=== PATIENT | female | born 1975 | race Caucasian/White ===

== ENCOUNTER 2016-07-18 17:09 | Emergency (ER) | payer BC ==
--- NOTE | 2016-07-18 18:58 | DIAGNOSTIC IMAGING REPORT ---
PROCEDURE: US ABDOMEN ULTRASOUND-LIMITED INDICATION: Epigastric and abdominal pain. TECHNIQUE: Waller scale and color Doppler sonographic images of the abdomen were obtained. COMPARISON: None. FINDINGS: Gallbladder is normal. No evidence of gallstones. Common duct is normal (5 mm). Portions of the liver, pancreas, and right kidney are seen, and are normal. IMPRESSION: 1. Negative ultrasound of the gallbladder and right upper quadrant.
--- NOTE | 2016-07-18 20:48 | ED CLINICAL REPORT ---
Clinical Report - Physicians/Mid Levels [facility] [address] [place] [address] 07/18/2016 17:10 Patient: SHILO PEDRO Time Seen: 1719. Arrived- By private vehicle. Historian- patient. HISTORY OF PRESENT ILLNESS Chief Complaint: ABDOMINAL PAIN. At its maximum, severity described as severe. When seen in the E.D., severity described as severe. Modifying factors- worsened by food. Relieved by rest. (states about 30 minutes after eating it gets really bad). It is described as sharp. No radiation. It is described as located in the epigastric area. This started past few weeks and is still present. It was abrupt in onset and has been intermittent but is not gone now. The patient has had nausea. No loss of appetite, vomiting or diarrhea. No additional abdominal pain. No recent travel. Similar symptoms previously: None. Recent medical care: The patient was seen recently in a clinic (state she had a normal US done from the clinic. Was told it was normal.). REVIEW OF SYSTEMS No skin rash. All systems otherwise negative, except as recorded above. PAST HISTORY See nurses notes. Medications: Apri Oral. Omeprazole Oral. Allergies: Meperidine. Penicillins. SOCIAL HISTORY Never smoker. Occasional alcohol use. No drug use. No recent travel. Is a local resident. ADDITIONAL NOTES The nursing notes have been reviewed. PHYSICAL EXAM Vital Signs: 07/18/2016 17:29 BP: 127/72. HR: 72. RR: 16. O2 saturation: 99%. Temp: 98.8 F. Blood pressure normal. Oxygen saturation normal. Appearance: Alert. Oriented X3. No acute distress. Eyes: Pupils equal, round and reactive to light. Eyes normal inspection. ENT: Ears normal. Nose normal. Pharynx normal. Neck: Normal inspection. Neck supple. CVS: Normal heart rate and rhythm. Heart sounds normal. Pulses normal. Respiratory: No respiratory distress. Breath sounds normal. Chest nontender. Abdomen: Soft and nontender. Bowel sounds normal. No organomegaly. No mass. Femoral pulses equal. Skin: Skin warm and dry. Normal skin color. No rash. Normal skin turgor. Extremities: Extremities exhibit normal ROM. No lower extremity edema. LABS, X-RAYS, AND EKG KUB: (PROCEDURE: US ABDOMEN ULTRASOUND-LIMITED INDICATION: Epigastric and abdominal pain. TECHNIQUE: Waller scale and color Doppler sonographic images of the abdomen were obtained. COMPARISON: None. FINDINGS: Gallbladder is normal. No evidence of gallstones. Common duct is normal (5 mm). Portions of the liver, pancreas, and right kidney are seen, and are normal. IMPRESSION: 1. Negative ultrasound of the gallbladder and right upper quadrant.). Laboratory Tests: UA-Culture if indicated: (BIANCA: 07/18/2016 18:26) ( [facility] [place] Final results Test Result Flag Units (Reference) URINE COLOR YELLOW URINE APPEARANCE CLEAR URINE GLUCOSE NEGATIVE (NEGATIVE) URINE BILIRUBIN NEGATIVE (NEGATIVE) URINE KETONE TRACE (NEGATIVE) URINE SPECIFIC GRAVITY 1.010 (1.010-1.030) URINE PH 7.0 (5.0-8.0) URINE PROTEIN NEGATIVE (NEGATIVE) URINE UROBILINOGEN 0.2 EU/dL (0.2-1.0) URINE NITRITE NEGATIVE (NEGATIVE) URINE BLOOD TRACE-INTACT (NEGATIVE) URINE LEUK ESTERASE NEGATIVE (NEGATIVE) URINE RBC NONE SEEN rbc/hpf (0-1) URINE WBC 0-1 wbc/hpf (0-1) URINE EPITHELIAL CELLS 0-1 EPI/hpf (0-5) URINE BACTERIA NONE SEEN (NONE SEEN) URINE COMMENT CULT NOT INDICATED URINE CULTURES ARE SET-UP BASED ON THE FOLLOWING CRITERIA:POSITIVE NITRITEPOSITIVE LEUKOCYTE ESTERASEGREATER THAN 10 WHITE BLOOD CELLSMODERATE (2+) OR GREATER BACTERIA CBC w Diff: (BIANCA: 07/18/2016 18:40) ( [facility] [place] 18:57) Final results Test Result Flag Units (Reference) WHITE BLOOD COUNT 10.7 K/uL (4.5-11.5) RED BLOOD COUNT 4.53 M/uL (4.00-5.20) HEMOGLOBIN 13.9 gm/dL (12.0-16.0) HEMATOCRIT 40.6 % (36.0-46.0) MEAN CELL VOLUME 90 fL (80-100) MEAN CORPUSCULAR HGB 31 pg (26-34) MEAN CORPUSCULAR HGB CONC 34 g/dL (31-37) RED CELL DISTRIBUTION WIDTH 12.3 % (11.6-14.8) PLATELET COUNT 245 K/uL (150-400) NEUTROPHIL % 51.7 % (50-75) LYMPH % 22.8 L % (25-40) MONO % 6.7 % (3-14) EOSINOPHIL % 18.0 H % (0-4) BASOPHIL % 0.8 % (0-2) PT with INR: (BIANCA: 07/18/2016 18:40) ( [facility] 07/18/2016 19:09) Final results Test Result Flag Units (Reference) INR 0.9 (0.8-1.2) Low Intensity Therapy: INR 1.5-2.0 PT range 18.5-23.1Mod.Intensity Therapy: INR 2.0-3.0 PT range 23.1-31.5High Intensity Therapy: INR 2.5-3.5 PT range 27.4-35.5High Intensity Therapy 2: INR 3.0-4.0 PT range 31.5-39.3 CMP: (BIANCA: 07/18/2016 18:40) ( [facility] 07/18/2016 19:21) Final results Test Result Flag Units (Reference) GLUCOSE 82 mg/dL (70-110) BUN 16 mg/dL (7-18) CREATININE 0.7 mg/dL (0.6-1.3) Estimated GFR >60 mL/min Estimated GFR- >60 mL/min Note: Persistent reduction over 3 months in eGFR<60 mL/min/1.73 m2 defines CKD. Patients with eGFR values>=60 mL/min/1.73 m2 may also have CKD if evidence ofpersistent proteinuria. Additional information may be foundat [email or web address].org. SODIUM 141 mmol/L (136-145) POTASSIUM 3.7 mmol/L (3.5-5.1) CHLORIDE 102 mmol/L (98-107) CARBON DIOXIDE 28 mmol/L (21-32) CALCIUM 9.1 mg/dL (8.5-10.1) TOTAL PROTEIN 7.5 g/dL (6.4-8.2) ALBUMIN 3.9 g/dL (3.3-5.0) BILIRUBIN, TOTAL 0.5 mg/dL (0.0-1.0) ALKALINE PHOSPHATASE 53 U/L (46-116) AST (SGOT) 19 U/L (15-37) ALT (SGPT) 22 U/L (12-78) LIPASE 108 U/L (73-393) BETA HCG, QUANTITATIVE 1 mIU/mL REFERENCE RANGE:Adult Males: <2 mIU/mLNon- Females: <6 mIU/mL Females:Approximate Approximate hCGGestational Age Range (mIU/mL) 0-1 week 0-501-2 weeks 40-3002-3 weeks 100-18588-6 weeks 500-56203-3 months 5,000-200,0002-3 months 10,000-100,0002nd trimester 3,000-50,0003rd trimester 1,000-50,000 . PROGRESS AND PROCEDURES Course of Care: the patient is a pleasant 41-year-old female presenting for evaluation of epigastric abdominal pain that is associated with eating. Patient's symptoms appear to becolicky in nature andappear to be related to the patient's gallbladder. The confounding factor is the patient was evaluated by her primary care doctor with an ultrasound and did not find any signs of cholelithiasis or cholecystitis. I discussion with patient in regards to other causes of patient's epigastric abdominal pain as well as gastritis versus peptic ulcer disease. Had also discussion with patient in regards to further workup here in the emergency department including ultrasound again or CT scan. Head discussion patient in regards to radiation risk with the CT scan andafter some deliberationpatient decided to have an ultrasound performed and await symptom improvement withmedications here in the emergency department. Patient is nontoxic and in no acute distress. Patient is agreeable to the treatment plan. The patient's workup was markable for the findings above. No signs of urinary tract infection. Patient's laboratory studies otherwise unremarkable. Patientreports significant improvement with the GI cocktail that was provided. Because of this, feel the symptoms are more related to gastritis versus peptic ulcer disease. Ultrasound does not show any signs of acute cholecystitis. Because the patient's improved symptoms patient will be given a trial of antacid medication and follow up with her primary care Dr. Do not feel patient needs to be admitted to the hospital or require further emergency department workup/evaluation. Patient appears nontoxic. Repeat examinatiig Discussed the patient workup in the emergency department including home care, follow-up, and return precautions. All questions answered. The patient expressed understanding of these instructions and was agreeable to them. Disposition: Discharged. Condition: good. CLINICAL IMPRESSION Acute epigastric abdominal pain of unknown cause. 07/18/2016 17:29 BP: 127/72. HR: 72. RR: 16. O2 saturation: 99%. Temp: 98.8 F. Moderate nausea. No vomiting. Blood pressure normal. Oxygen saturation normal. Acute gastritis INSTRUCTIONS Warnings: GENERAL WARNINGS: Return or contact your physician immediately if your condition worsens or changes unexpectedly, if not improving as expected, or if other problems arise. SPECIFICALLY, return if you develop pain, fever, vomiting, the inability to keep fluids down, blood in vomitus, blood in diarrhea, fainting or lightheadedness. Your Current Medications: CONTINUE TAKING THE FOLLOWING MEDICATIONS: Apri Oral. Omeprazole Oral. Prescription Medications: Zofran (orally disintegrating tablets) 4 mg: take 1 orally every 8 hours as needed for nausea and vomiting. Dispense ten (10). No refill. Substitution is permissible. Sucralfate 1 gm: take 1 orally at bedtime as needed for indigestion, upset stomach or heartburn. Dispense twenty (20). No refills. (substitution allowed) Follow-up: Return to the emergency department as needed. Follow up with a academic affairs specialist- as recommended by your primary care physician. Reason for referral: recheck today's concerns. Follow up with your doctor in three days. Reason for referral: recheck today's concerns. Summary of care provided to patient via paper. Screening today revealed the patient's blood pressure to be in the normal range. The patient should follow up with a primary care provider for blood pressure management. Understanding of the discharge instructions verbalized by patient. (Electronically signed by Terry Davies Dr. 07/22/2016 12:57)
--- NOTE | 2016-07-18 20:48 | ED NURSING NOTES ---
Clinical Report - Nurses [facility] [address] [place] [address] 07/18/2016 17:10 Patient: SHILO PEDRO TRIAGE Triage time 17:21. Acuity: LEVEL 3. Chief Complaint: ABDOMINAL PAIN and NAUSEA. Alert. --17:27 Yvonne Pedroza R.N. 17:29 07/18/16. BP: 127/72. HR: 72. RR: 16. O2 saturation: 99%. Temp: 98.8 F. Pain level now 10/22. --17:30 Yvonne Pedroza R.N. Weight: 51.7 kg stated. Height/Length: 63 inches Per Patient. BMI: 20.2. --17:21 Yvonne Pedroza R.N. Medications Omeprazole Oral. --17:23 Yvonne Pedroza R.N. Apri Oral. --17:23 Yvonne Pedroza R.N. Allergies Meperidine. Penicillins. --17:23 Yvonne Pedroza R.N. History Arrived by private vehicle. Historian: patient. Accompanied by friend. Primary physician (Brad). This is a new problem. (about 2 weeks). ( was seen at the [facility] yesterday and had a gallbladder u/s but needed to schedule a GI consult but not able to get in for 3 weeks.). She has had nausea. No vomiting or diarrhea. 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 PAST MEDICAL HX: Immunizations: status is unknown. Last normal menstrual period- July 11. ( bronchitis). SOCIAL HX: Never smoker. Occasional alcohol use. No recent travel. She has had contact with a sick individual. --17:27 Yvonne Pedroza R.N. ( Pain is burning epigastric pain). --17:30 Yvonne Pedroza R.N. PROBLEMS: no known problems. ADDITIONAL SURGERIES: Breast Augmentation. --17:24 Yvonne Pedroza R.N. PHYSICAL ASSESSMENT Ambulatory to room. Patient gowned. GENERAL / NEURO / PSYCH: Alert. Oriented X 4. Appears in no acute distress. RESPIRATORY: Respirations not labored. CVS: Capillary refill less than 2 seconds. --17:28 Yvonne Pedroza R.N. ( Patient laying in bed states that her pain is decreased after receiving the pain medication.). GENERAL / NEURO / PSYCH: Alert. Oriented X 4. Appears in no acute distress. HEENT: Mucous membranes are pink. RESPIRATORY: Respirations not labored. Breath sounds within normal limits. CVS: Capillary refill less than 2 seconds. GI / : Bowel sounds within normal limits. SKIN: Skin is warm and dry. --19:16 Austen Naranjo R.N. 19:15 07/18/16. BP: 99/67. HR: 67. RR: 17 (regular and unlabored). O2 saturation: 100% on room air. Pain level now: 06/22. --19:16 Austen Naranjo R.N. NURSING PROGRESS NOTES Patient gowned. Patient identifiers checked. Call light placed in reach. Patient ready for evaluation- ED physician notified. --17:28 Yvonne Pedroza R.N. 18:45 07/18/2016 Site #1 started via IV in the right antecubital space with an 18g angiocath using 1% intra-dermal lidocaine; one attempt. Blood drawn: rainbow set. Labeled in the presence of the patient and sent to the lab. Saline lock flushed with 10 mL saline. --18:45 Yvonne Pedroza R.N. 18:49 07/18/2016 Fentanyl IVP 50 mcg given over 2 minute(s) via site #1. Allergies verified, confirmed 5 rights and sedative warning given to the patient. IV patency established. IV site checked: no pain, redness, or swelling. IV flushed thoroughly pre- and post-medication administration. IVP given by RN. --18:54 Yvonne Pedroza R.N. 18:49 07/18/2016 Zofran (Ondansetron HCl) IVP 4 mg given over 2 minute(s) via site #1. Allergies verified and confirmed 5 rights. IV patency established. IV site checked: no pain, redness, or swelling. IV flushed thoroughly pre- and post-medication administration. IVP given by RN. --18:54 Yvonne Pedroza R.N. 18:53 07/18/2016 Started bag #1 1000 mL IV Fluids IV NS (Saline); bolus of 1000 mL wide open via site #1. Allergies verified and confirmed 5 rights. IV patency established. IV site checked: no pain, redness, or swelling. IV flushed thoroughly pre- and post-medication administration. --18:54 Yvonne Pedroza R.N. ( Report received from Yvonne Bearden RN.). --19:11 Austen Naranjo R.N. 19:53 07/18/2016 IV Fluids IV NS Discontinued: bag #1 completed upon discharge. Total amount infused: 1000 mL. IV patency established. IV site checked: no pain, redness, or swelling. IV flushed thoroughly. --21:10 Austen Naranjo R.N. 19:57 07/18/2016 GI COCKTAIL WHITE (Simethicone) PO Oral Suspension 30 mL given. Allergies verified and confirmed 5 rights. --19:57 Austen Naranjo R.N. 21:07/18/2016 Site #1 removed upon discharge. Manual pressure and bandaid applied. --21:06 Austen Naranjo R.N. DISPOSITION / DISCHARGE Departure time: 21:07. Condition at departure: stable. No learning barriers present. Discharge instructions provided and reviewed with support clerk and the patient. Reviewed warnings. Reviewed medication(s) side effects, precautions, dosing and course information. Prescription(s) given to the patient. Treatments reviewed. Reviewed referrals. Patient and support clerk verbalized understanding. Written instructions provided in Spanish. The patient was discharged home and accompanied by support clerk. She left the Emergency Department ambulatory and via private vehicle. Duco Polisher driving. ( Patient states understanding that she is not supposed to drive tonight after receiving narcotic pain medications tonight.). --21:09 Austen Naranjo R.N. 21:06 07/18/16. BP: 104/69. HR: 71. RR: 18 (regular and unlabored). O2 saturation: 95% on room air. --21:09 Austen Naranjo R.N. ( pt stated that her pain decreased after the GI cocktail.). --21:11 Austen Naranjo R.N. Locked/Released at 07/18/2016 21:11 by Austen Naranjo R.N.
--- NOTE | 2016-07-18 20:48 | ED NURSING NOTES ---
Clinical Report - Nurses [facility] [address] [place] [address] 07/18/2016 17:10 Patient: SHILO PEDRO TRIAGE Triage time 17:21. Acuity: LEVEL 3. Chief Complaint: ABDOMINAL PAIN and NAUSEA. Alert. --17:27 Yvonne Pedroza R.N. 17:29 07/18/16. BP: 127/72. HR: 72. RR: 16. O2 saturation: 99%. Temp: 98.8 F. Pain level now 10/22. --17:30 Yvonne Pedroza R.N. Weight: 51.7 kg stated. Height/Length: 63 inches Per Patient. BMI: 20.2. --17:21 Yvonne Pedroza R.N. Medications Omeprazole Oral. --17:23 Yvonne Pedroza R.N. Apri Oral. --17:23 Yvonne Pedroza R.N. Allergies Meperidine. Penicillins. --17:23 Yvonne Pedroza R.N. History Arrived by private vehicle. Historian: patient. Accompanied by friend. Primary physician (Brad). This is a new problem. (about 2 weeks). ( was seen at the [facility] yesterday and had a gallbladder u/s but needed to schedule a GI consult but not able to get in for 3 weeks.). She has had nausea. No vomiting or diarrhea. 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 PAST MEDICAL HX: Immunizations: status is unknown. Last normal menstrual period- July 11. ( bronchitis). SOCIAL HX: Never smoker. Occasional alcohol use. No recent travel. She has had contact with a sick individual. --17:27 Yvonne Pedroza R.N. ( Pain is burning epigastric pain). --17:30 Yvonne Pedroza R.N. PROBLEMS: no known problems. ADDITIONAL SURGERIES: Breast Augmentation. --17:24 Yvonne Pedroza R.N. PHYSICAL ASSESSMENT Ambulatory to room. Patient gowned. GENERAL / NEURO / PSYCH: Alert. Oriented X 4. Appears in no acute distress. RESPIRATORY: Respirations not labored. CVS: Capillary refill less than 2 seconds. --17:28 Yvonne Pedroza R.N. ( Patient laying in bed states that her pain is decreased after receiving the pain medication.). GENERAL / NEURO / PSYCH: Alert. Oriented X 4. Appears in no acute distress. HEENT: Mucous membranes are pink. RESPIRATORY: Respirations not labored. Breath sounds within normal limits. CVS: Capillary refill less than 2 seconds. GI / : Bowel sounds within normal limits. SKIN: Skin is warm and dry. --19:16 Austen Naranjo R.N. 19:15 07/18/16. BP: 99/67. HR: 67. RR: 17 (regular and unlabored). O2 saturation: 100% on room air. Pain level now: 06/22. --19:16 Austen Naranjo R.N. NURSING PROGRESS NOTES Patient gowned. Patient identifiers checked. Call light placed in reach. Patient ready for evaluation- ED physician notified. --17:28 Yvonne Pedroza R.N. 18:45 07/18/2016 Site #1 started via IV in the right antecubital space with an 18g angiocath using 1% intra-dermal lidocaine; one attempt. Blood drawn: rainbow set. Labeled in the presence of the patient and sent to the lab. Saline lock flushed with 10 mL saline. --18:45 Yvonne Pedroza R.N. 18:49 07/18/2016 Fentanyl IVP 50 mcg given over 2 minute(s) via site #1. Allergies verified, confirmed 5 rights and sedative warning given to the patient. IV patency established. IV site checked: no pain, redness, or swelling. IV flushed thoroughly pre- and post-medication administration. IVP given by RN. --18:54 Yvonne Pedroza R.N. 18:49 07/18/2016 Zofran (Ondansetron HCl) IVP 4 mg given over 2 minute(s) via site #1. Allergies verified and confirmed 5 rights. IV patency established. IV site checked: no pain, redness, or swelling. IV flushed thoroughly pre- and post-medication administration. IVP given by RN. --18:54 Yvonne Pedroza R.N. 18:53 07/18/2016 Started bag #1 1000 mL IV Fluids IV NS (Saline); bolus of 1000 mL wide open via site #1. Allergies verified and confirmed 5 rights. IV patency established. IV site checked: no pain, redness, or swelling. IV flushed thoroughly pre- and post-medication administration. --18:54 Yvonne Pedroza R.N. ( Report received from Yvonne Bearden RN.). --19:11 Austen Naranjo R.N. 19:53 07/18/2016 IV Fluids IV NS Discontinued: bag #1 completed upon discharge. Total amount infused: 1000 mL. IV patency established. IV site checked: no pain, redness, or swelling. IV flushed thoroughly. --21:10 Austen Naranjo R.N. 19:57 07/18/2016 GI COCKTAIL WHITE (Simethicone) PO Oral Suspension 30 mL given. Allergies verified and confirmed 5 rights. --19:57 Austen Naranjo R.N. 21:07/18/2016 Site #1 removed upon discharge. Manual pressure and bandaid applied. --21:06 Austen Naranjo R.N. DISPOSITION / DISCHARGE Departure time: 21:07. Condition at departure: stable. No learning barriers present. Discharge instructions provided and reviewed with tavern car attendant and the patient. Reviewed warnings. Reviewed medication(s) side effects, precautions, dosing and course information. Prescription(s) given to the patient. Treatments reviewed. Reviewed referrals. Patient and tavern car attendant verbalized understanding. Written instructions provided in Yi. The patient was discharged home and accompanied by tavern car attendant. She left the Emergency Department ambulatory and via private vehicle. Nurse [employer] Dependency driving. ( Patient states understanding that she is not supposed to drive tonight after receiving narcotic pain medications tonight.). --21:09 Austen Naranjo R.N. 21:06 07/18/16. BP: 104/69. HR: 71. RR: 18 (regular and unlabored). O2 saturation: 95% on room air. --21:09 Austen Naranjo R.N. ( pt stated that her pain decreased after the GI cocktail.). --21:11 Austen Naranjo R.N. Locked/Released at 07/18/2016 21:11 by Austen Naranjo R.N.
--- NOTE | 2016-07-18 20:48 | ED CLINICAL REPORT ---
Clinical Report - Physicians/Mid Levels [facility] [address] [place] [address] 07/18/2016 17:10 Patient: SHILO PEDRO Time Seen: 1719. Arrived- By private vehicle. Historian- patient. HISTORY OF PRESENT ILLNESS Chief Complaint: ABDOMINAL PAIN. At its maximum, severity described as severe. When seen in the E.D., severity described as severe. Modifying factors- worsened by food. Relieved by rest. (states about 30 minutes after eating it gets really bad). It is described as sharp. No radiation. It is described as located in the epigastric area. This started past few weeks and is still present. It was abrupt in onset and has been intermittent but is not gone now. The patient has had nausea. No loss of appetite, vomiting or diarrhea. No additional abdominal pain. No recent travel. Similar symptoms previously: None. Recent medical care: The patient was seen recently in a clinic (state she had a normal US done from the clinic. Was told it was normal.). REVIEW OF SYSTEMS No skin rash. All systems otherwise negative, except as recorded above. PAST HISTORY See nurses notes. Medications: Apri Oral. Omeprazole Oral. Allergies: Meperidine. Penicillins. SOCIAL HISTORY Never smoker. Occasional alcohol use. No drug use. No recent travel. Is a local resident. ADDITIONAL NOTES The nursing notes have been reviewed. PHYSICAL EXAM Vital Signs: 07/18/2016 17:29 BP: 127/72. HR: 72. RR: 16. O2 saturation: 99%. Temp: 98.8 F. Blood pressure normal. Oxygen saturation normal. Appearance: Alert. Oriented X3. No acute distress. Eyes: Pupils equal, round and reactive to light. Eyes normal inspection. ENT: Ears normal. Nose normal. Pharynx normal. Neck: Normal inspection. Neck supple. CVS: Normal heart rate and rhythm. Heart sounds normal. Pulses normal. Respiratory: No respiratory distress. Breath sounds normal. Chest nontender. Abdomen: Soft and nontender. Bowel sounds normal. No organomegaly. No mass. Femoral pulses equal. Skin: Skin warm and dry. Normal skin color. No rash. Normal skin turgor. Extremities: Extremities exhibit normal ROM. No lower extremity edema. LABS, X-RAYS, AND EKG KUB: (PROCEDURE: US ABDOMEN ULTRASOUND-LIMITED INDICATION: Epigastric and abdominal pain. TECHNIQUE: Waller scale and color Doppler sonographic images of the abdomen were obtained. COMPARISON: None. FINDINGS: Gallbladder is normal. No evidence of gallstones. Common duct is normal (5 mm). Portions of the liver, pancreas, and right kidney are seen, and are normal. IMPRESSION: 1. Negative ultrasound of the gallbladder and right upper quadrant.). Laboratory Tests: UA-Culture if indicated: (BIANCA: 07/18/2016 18:26) ( [facility] 07/18/2016 19:13) Final results Test Result Flag Units (Reference) URINE COLOR YELLOW URINE APPEARANCE CLEAR URINE GLUCOSE NEGATIVE (NEGATIVE) URINE BILIRUBIN NEGATIVE (NEGATIVE) URINE KETONE TRACE (NEGATIVE) URINE SPECIFIC GRAVITY 1.010 (1.010-1.030) URINE PH 7.0 (5.0-8.0) URINE PROTEIN NEGATIVE (NEGATIVE) URINE UROBILINOGEN 0.2 EU/dL (0.2-1.0) URINE NITRITE NEGATIVE (NEGATIVE) URINE BLOOD TRACE-INTACT (NEGATIVE) URINE LEUK ESTERASE NEGATIVE (NEGATIVE) URINE RBC NONE SEEN rbc/hpf (0-1) URINE WBC 0-1 wbc/hpf (0-1) URINE EPITHELIAL CELLS 0-1 EPI/hpf (0-5) URINE BACTERIA NONE SEEN (NONE SEEN) URINE COMMENT CULT NOT INDICATED URINE CULTURES ARE SET-UP BASED ON THE FOLLOWING CRITERIA:POSITIVE NITRITEPOSITIVE LEUKOCYTE ESTERASEGREATER THAN 10 WHITE BLOOD CELLSMODERATE (2+) OR GREATER BACTERIA CBC w Diff: (BIANCA: 07/18/2016 18:40) ( [facility] 07/18/2016 18:57) Final results Test Result Flag Units (Reference) WHITE BLOOD COUNT 10.7 K/uL (4.5-11.5) RED BLOOD COUNT 4.53 M/uL (4.00-5.20) HEMOGLOBIN 13.9 gm/dL (12.0-16.0) HEMATOCRIT 40.6 % (36.0-46.0) MEAN CELL VOLUME 90 fL (80-100) MEAN CORPUSCULAR HGB 31 pg (26-34) MEAN CORPUSCULAR HGB CONC 34 g/dL (31-37) RED CELL DISTRIBUTION WIDTH 12.3 % (11.6-14.8) PLATELET COUNT 245 K/uL (150-400) NEUTROPHIL % 51.7 % (50-75) LYMPH % 22.8 L % (25-40) MONO % 6.7 % (3-14) EOSINOPHIL % 18.0 H % (0-4) BASOPHIL % 0.8 % (0-2) PT with INR: (BIANCA: 07/18/2016 18:40) ( [facility] 07/18/2016 19:09) Final results Test Result Flag Units (Reference) INR 0.9 (0.8-1.2) Low Intensity Therapy: INR 1.5-2.0 PT range 18.5-23.1Mod.Intensity Therapy: INR 2.0-3.0 PT range 23.1-31.5High Intensity Therapy: INR 2.5-3.5 PT range 27.4-35.5High Intensity Therapy 2: INR 3.0-4.0 PT range 31.5-39.3 CMP: (BIANCA: 07/18/2016 18:40) ( [facility] 07/18/2016 19:21) Final results Test Result Flag Units (Reference) GLUCOSE 82 mg/dL (70-110) BUN 16 mg/dL (7-18) CREATININE 0.7 mg/dL (0.6-1.3) Estimated GFR >60 mL/min Estimated GFR- >60 mL/min Note: Persistent reduction over 3 months in eGFR<60 mL/min/1.73 m2 defines CKD. Patients with eGFR values>=60 mL/min/1.73 m2 may also have CKD if evidence ofpersistent proteinuria. Additional information may be foundat www.[email or web address].org. SODIUM 141 mmol/L (136-145) POTASSIUM 3.7 mmol/L (3.5-5.1) CHLORIDE 102 mmol/L (98-107) CARBON DIOXIDE 28 mmol/L (21-32) CALCIUM 9.1 mg/dL (8.5-10.1) TOTAL PROTEIN 7.5 g/dL (6.4-8.2) ALBUMIN 3.9 g/dL (3.3-5.0) BILIRUBIN, TOTAL 0.5 mg/dL (0.0-1.0) ALKALINE PHOSPHATASE 53 U/L (46-116) AST (SGOT) 19 U/L (15-37) ALT (SGPT) 22 U/L (12-78) LIPASE 108 U/L (73-393) BETA HCG, QUANTITATIVE 1 mIU/mL REFERENCE RANGE:Adult Males: <2 mIU/mLNon- Females: <6 mIU/mL Females:Approximate Approximate hCGGestational Age Range (mIU/mL) 0-1 week 0-501-2 weeks 40-3002-3 weeks 100-95399-2 weeks 500-47280-6 months 5,000-200,0002-3 months 10,000-100,0002nd trimester 3,000-50,0003rd trimester 1,000-50,000 . PROGRESS AND PROCEDURES Course of Care: the patient is a pleasant 41-year-old female presenting for evaluation of epigastric abdominal pain that is associated with eating. Patient's symptoms appear to becolicky in nature andappear to be related to the patient's gallbladder. The confounding factor is the patient was evaluated by her primary care doctor with an ultrasound and did not find any signs of cholelithiasis or cholecystitis. I discussion with patient in regards to other causes of patient's epigastric abdominal pain as well as gastritis versus peptic ulcer disease. Had also discussion with patient in regards to further workup here in the emergency department including ultrasound again or CT scan. Head discussion patient in regards to radiation risk with the CT scan andafter some deliberationpatient decided to have an ultrasound performed and await symptom improvement withmedications here in the emergency department. Patient is nontoxic and in no acute distress. Patient is agreeable to the treatment plan. The patient's workup was markable for the findings above. No signs of urinary tract infection. Patient's laboratory studies otherwise unremarkable. Patientreports significant improvement with the GI cocktail that was provided. Because of this, feel the symptoms are more related to gastritis versus peptic ulcer disease. Ultrasound does not show any signs of acute cholecystitis. Because the patient's improved symptoms patient will be given a trial of antacid medication and follow up with her primary care Dr. Do not feel patient needs to be admitted to the hospital or require further emergency department workup/evaluation. Patient appears nontoxic. Repeat examinatiig Discussed the patient workup in the emergency department including home care, follow-up, and return precautions. All questions answered. The patient expressed understanding of these instructions and was agreeable to them. Disposition: Discharged. Condition: good. CLINICAL IMPRESSION Acute epigastric abdominal pain of unknown cause. 07/18/2016 17:29 BP: 127/72. HR: 72. RR: 16. O2 saturation: 99%. Temp: 98.8 F. Moderate nausea. No vomiting. Blood pressure normal. Oxygen saturation normal. Acute gastritis INSTRUCTIONS Warnings: GENERAL WARNINGS: Return or contact your physician immediately if your condition worsens or changes unexpectedly, if not improving as expected, or if other problems arise. SPECIFICALLY, return if you develop pain, fever, vomiting, the inability to keep fluids down, blood in vomitus, blood in diarrhea, fainting or lightheadedness. Your Current Medications: CONTINUE TAKING THE FOLLOWING MEDICATIONS: Apri Oral. Omeprazole Oral. Prescription Medications: Zofran (orally disintegrating tablets) 4 mg: take 1 orally every 8 hours as needed for nausea and vomiting. Dispense ten (10). No refill. Substitution is permissible. Sucralfate 1 gm: take 1 orally at bedtime as needed for indigestion, upset stomach or heartburn. Dispense twenty (20). No refills. (substitution allowed) Follow-up: Return to the emergency department as needed. Follow up with a ip/mosaic technician- as recommended by your primary care physician. Reason for referral: recheck today's concerns. Follow up with your doctor in three days. Reason for referral: recheck today's concerns. Summary of care provided to patient via paper. Screening today revealed the patient's blood pressure to be in the normal range. The patient should follow up with a primary care provider for blood pressure management. Understanding of the discharge instructions verbalized by patient. (Electronically signed by Terry Davies Dr. 07/22/2016 12:57)
--- NOTE | 2016-07-18 20:48 | ED ORDER SUMMARY ---
..... Patient: SHILO PEDRO OrderSheet [facility] VisitID: [id number] [address] [place] [address] 41y, F Registration Date/Time: 07/18/2016 ORDER SHEET Weight: 51.7 kg (stated) Allergies: Meperidine, Penicillins GENERAL ORDERS: US Abdomen Limited (No) Urgent (17:51 07/18/2016 Edwige Torres) (Ack 17:57 LNations ER Tech1) (19:00 MCampbell) CBC w Diff Urgent (17:54 07/18/2016 Edwgie Torres) (Ack 17:57 LNations ER Tech1) (18:43 KHoerner) CMP Urgent (17:54 07/18/2016 Edwige Torres) (Ack 17:57 LNations ER Tech1) (18:43 KHoerner) UA-Culture if indicated Urgent (17:54 07/18/2016 Edwige Torres) (Ack 17:57 LNations ER Tech1) (18:43 KHoerner) PT with INR Urgent (17:54 07/18/2016 Edwige Torres) (Ack 17:57 LNations ER Tech1) (18:43 KHoerner) Lipase Urgent (17:54 07/18/2016 Edwige Torres) (Ack 17:57 LNations ER Tech1) (18:43 KHoerner) Serum Quantitative Urgent (17:54 07/18/2016 Edwige Torres) (Ack 17:57 LNations ER Tech1) (18:43 KHoerner) Pulse oximeter (17:54 07/18/2016 Edwige Torres) (Ack 17:57 LNations ER Tech1) (18:45 DMaziarka R.N.) MEDICATION ORDERS: GI Cocktail WHITE PO 30 mL with Lidocaine Viscous Mouth/Throat 15 mL, Maalox Plus Oral 15 mL (NOW) (19:48 07/18/2016 DDavis R.N. verbal order read back to Edwige Torres) (Ack 19:48 DDavis R.N.) (19:57 DDavis R.N.) IV FLUIDS: IV NS : initial bolus 1000 mL (1000 mL/hr), then none - for X1 (NOW) (17:53 07/18/2016 Edwige Torres) (18:53 Rich R.N.) Fentanyl IV 50 mcg (once now may repeat as needed every 1 hour PRN pain > 5/10) (17:53 07/18/2016 Edwige Torres) (18:54 Rich R.N.) Zofran IV 4 mg (NOW) (17:54 07/18/2016 Edwige Torres) (18:54 Rich R.N.) ORDER SHEET NOTES: [Electronically signed by Austen Naranjo R.N. (21:11 07/18/2016)] [Electronically signed by Terry Davies Dr. (12:57 07/22/2016)] [Electronically locked/signed by Austen Naranjo R.N. (21:11 07/18/2016)]
--- NOTE | 2016-07-18 20:48 | ED ORDER SUMMARY ---
..... Patient: SHILO PEDRO OrderSheet [facility] VisitID: [id number] [address] [place] [address] 41y, F Registration Date/Time: 07/18/2016 ORDER SHEET Weight: 51.7 kg (stated) Allergies: Meperidine, Penicillins GENERAL ORDERS: US Abdomen Limited (No) Urgent (17:51 07/18/2016 Edwige Torres) (Ack 17:57 LNations ER Tech1) (19:00 MCampbell) CBC w Diff Urgent (17:54 07/18/2016 Edwige Torres) (Ack 17:57 LNations ER Tech1) (18:43 KHoerner) CMP Urgent (17:54 07/18/2016 Edwige Torres) (Ack 17:57 LNations ER Tech1) (18:43 KHoerner) UA-Culture if indicated Urgent (17:54 07/18/2016 Edwige Torres) (Ack 17:57 LNations ER Tech1) (18:43 KHoerner) PT with INR Urgent (17:54 07/18/2016 Edwige Torres) (Ack 17:57 LNations ER Tech1) (18:43 KHoerner) Lipase Urgent (17:54 07/18/2016 Edwige Torres) (Ack 17:57 LNations ER Tech1) (18:43 KHoerner) Serum Quantitative Urgent (17:54 07/18/2016 Edwige Torres) (Ack 17:57 LNations ER Tech1) (18:43 KHoerner) Pulse oximeter (17:54 07/18/2016 Edwige Torres) (Ack 17:57 LNations ER Tech1) (18:45 DMaziarka R.N.) MEDICATION ORDERS: GI Cocktail WHITE PO 30 mL with Lidocaine Viscous Mouth/Throat 15 mL, Maalox Plus Oral 15 mL (NOW) (19:48 07/18/2016 DDavis R.N. verbal order read back to Edwige Torres) (Ack 19:48 DDavis R.N.) (19:57 DDavis R.N.) IV FLUIDS: IV NS : initial bolus 1000 mL (1000 mL/hr), then none - for X1 (NOW) (17:53 07/18/2016 Edwige Torres) (18:53 Rich R.N.) Fentanyl IV 50 mcg (once now may repeat as needed every 1 hour PRN pain > 5/10) (17:53 07/18/2016 Edwige Torres) (18:54 Rich R.N.) Zofran IV 4 mg (NOW) (17:54 07/18/2016 Edwige Torres) (18:54 Rich R.N.) ORDER SHEET NOTES: [Electronically signed by Austen Naranjo R.N. (21:11 07/18/2016)] [Electronically signed by Terry Davies Dr. (12:57 07/22/2016)] [Electronically locked/signed by Austen Naranjo R.N. (21:11 07/18/2016)]
--- NOTE | 2016-07-22 12:57 | ED MED RECONCILIATION SUMMARY ---
Patient: SHILO PEDRO Medication Reconciliation Report [facility] VisitID: [id number] [address] [place] [address] 41y, F Registration Date/Time: 07/18/2016 Weight: 51.7 kg Height/Length: 63 in. BMI: 20.2 ALLERGIES: Meperidine, Penicillins The patient's Home Medications are listed below: CONTINUE TAKING THE FOLLOWING MEDICATIONS: Apri Oral Omeprazole Oral The source(s) of the original Home Medication information: Not obtained. The following Medications were given to the patient in the Emergency Department: IV NS IV Fluids bolus 1000 mL wide open, administered: 07/18/2016 6:53:00 PM Fentanyl [IVP] IVP 50 mcg, administered: 07/18/2016 6:49:00 PM Zofran [IVP] IVP 4 mg, administered: 07/18/2016 6:49:00 PM GI COCKTAIL WHITE [PO] PO 30 mL, administered: 07/18/2016 7:57:00 PM The following Medications were prescribed to the patient: Zofran (orally disintegrating tablets) 4 mg: take 1 orally every 8 hours as needed for nausea and vomiting. Dispense ten (10). No refill. Substitution is permissible. -- Terry Davies Dr. Sucralfate 1 gm: take 1 orally at bedtime as needed for indigestion, upset stomach or heartburn. Dispense twenty (20). No refills.(substitution allowed) -- Terry Davies Dr.
--- NOTE | 2016-07-22 12:57 | ED MAR SUMMARY ---
..... Medication Administration Record [facility] [address] [place] [address] Patient: SHILO PEDRO Visit ID: [id number] 41y, F Weight: 51.7 kg Height/Length: 63 in BMI: 20.2 ALLERGIES: Meperidine, Penicillins Given 18:49 07/18/2016 Yvonne Pedroza R.N. Medication Administered: FENTANYL [IVP], Dose: 50 mcg IVP over 2 minute(s), Site: #1 right AC. Medication Ordered: Fentanyl IV 50 mcg (once now may repeat as needed every 1 hour PRN pain > 5/10). Given 18:49 07/18/2016 Yvonne Pedroza R.N. Medication Administered: ZOFRAN [IVP] (ONDANSETRON HCL), Dose: 4 mg IVP over 2 minute(s), Site: #1 right AC. Medication Ordered: Zofran IV 4 mg (NOW). Start 18:53 07/18/2016 Yvonne Pedroza R.N., Stop 19:53 07/18/2016 Austen Naranjo R.N. Medication Administered: IV NS (SALINE), Dose: IV Fluids, Bolus: 1000 mL wide open, Dispensed: 1000 mL bag, Site: #1 right AC. Medication Ordered: IV NS : initial bolus 1000 mL (1000 mL/hr), then none - for X1 (NOW). Given 19:57 07/18/2016 Austen Naranjo R.N. Medication Administered: GI COCKTAIL WHITE [PO] (SIMETHICONE), Dose: 30 mL Oral Suspension PO. Medication Ordered: GI Cocktail WHITE PO 30 mL with Lidocaine Viscous Mouth/Throat 15 mL, Maalox Plus Oral 15 mL (NOW).
--- NOTE | 2016-07-22 12:57 | ED MED RECONCILIATION SUMMARY ---
Patient: SHILO PEDRO Medication Reconciliation Report [facility] VisitID: [id number] [address] [place] [address] 41y, F Registration Date/Time: 07/18/2016 Weight: 51.7 kg Height/Length: 63 in. BMI: 20.2 ALLERGIES: Meperidine, Penicillins The patient's Home Medications are listed below: CONTINUE TAKING THE FOLLOWING MEDICATIONS: Apri Oral Omeprazole Oral The source(s) of the original Home Medication information: Not obtained. The following Medications were given to the patient in the Emergency Department: IV NS IV Fluids bolus 1000 mL wide open, administered: 07/18/2016 6:53:00 PM Fentanyl [IVP] IVP 50 mcg, administered: 07/18/2016 6:49:00 PM Zofran [IVP] IVP 4 mg, administered: 07/18/2016 6:49:00 PM GI COCKTAIL WHITE [PO] PO 30 mL, administered: 07/18/2016 7:57:00 PM The following Medications were prescribed to the patient: Zofran (orally disintegrating tablets) 4 mg: take 1 orally every 8 hours as needed for nausea and vomiting. Dispense ten (10). No refill. Substitution is permissible. -- Terry Davies Dr. Sucralfate 1 gm: take 1 orally at bedtime as needed for indigestion, upset stomach or heartburn. Dispense twenty (20). No refills.(substitution allowed) -- Terry Davies Dr.
--- NOTE | 2016-07-22 12:57 | ED MAR SUMMARY ---
..... Medication Administration Record [facility] [address] [place] [address] Patient: SHILO PEDRO Visit ID: [id number] 41y, F Weight: 51.7 kg Height/Length: 63 in BMI: 20.2 ALLERGIES: Meperidine, Penicillins Given 18:49 07/18/2016 Yvonne Pedroza R.N. Medication Administered: FENTANYL [IVP], Dose: 50 mcg IVP over 2 minute(s), Site: #1 right AC. Medication Ordered: Fentanyl IV 50 mcg (once now may repeat as needed every 1 hour PRN pain > 5/10). Given 18:49 07/18/2016 Yvonne Pedroza R.N. Medication Administered: ZOFRAN [IVP] (ONDANSETRON HCL), Dose: 4 mg IVP over 2 minute(s), Site: #1 right AC. Medication Ordered: Zofran IV 4 mg (NOW). Start 18:53 07/18/2016 Yvonne Pedroza R.N., Stop 19:53 07/18/2016 Austen Naranjo R.N. Medication Administered: IV NS (SALINE), Dose: IV Fluids, Bolus: 1000 mL wide open, Dispensed: 1000 mL bag, Site: #1 right AC. Medication Ordered: IV NS : initial bolus 1000 mL (1000 mL/hr), then none - for X1 (NOW). Given 19:57 07/18/2016 Austen Naranjo R.N. Medication Administered: GI COCKTAIL WHITE [PO] (SIMETHICONE), Dose: 30 mL Oral Suspension PO. Medication Ordered: GI Cocktail WHITE PO 30 mL with Lidocaine Viscous Mouth/Throat 15 mL, Maalox Plus Oral 15 mL (NOW).
--- NOTE | 2016-07-22 12:57 | ED DISCHARGE INSTRUCTIONS ---
Patient: SHILO PEDRO General Instructions [facility] VisitID: [id number] [place] [address] 41y, F Registration Date/Time: 07/18/2016 Acute epigastric abdominal pain of unknown cause. 07/18/2016 17:29 BP: 127/72. HR: 72. RR: 16. O2 saturation: 99%. Temp: 98.8 F. Moderate nausea. No vomiting. Blood pressure normal. Oxygen saturation normal. Acute gastritis INSTRUCTIONS Warnings: GENERAL WARNINGS: Return or contact your physician immediately if your condition worsens or changes unexpectedly, if not improving as expected, or if other problems arise. SPECIFICALLY, return if you develop pain, fever, vomiting, the inability to keep fluids down, blood in vomitus, blood in diarrhea, fainting or lightheadedness. Your Current Medications: CONTINUE TAKING THE FOLLOWING MEDICATIONS: Apri Oral. Omeprazole Oral. Prescription Medications: Zofran (orally disintegrating tablets) 4 mg: take 1 orally every 8 hours as needed for nausea and vomiting. Dispense ten (10). No refill. Substitution is permissible. Sucralfate 1 gm: take 1 orally at bedtime as needed for indigestion, upset stomach or heartburn. Dispense twenty (20). No refills. (substitution allowed) Follow-up: Return to the emergency department as needed. 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 Reason for referral: recheck today's concerns. Follow up with your doctor in three days. Reason for referral: recheck today's concerns. Summary of care provided to patient via paper. Screening today revealed the patient's blood pressure to be in the normal range. The patient should follow up with a primary care provider for blood pressure management. Understanding of the discharge instructions verbalized by patient. ADDITIONAL INFORMATION Abdominal Pain, Unknown Cause (Female) The exact cause of your abdominal (stomach) pain is not certain. This does not mean that this is something to worry about, or the right tests were not done. Everyone likes to know the exact cause of the problem, but sometimes with abdominal pain, there is no clear-cut cause, and this could be a good thing. The good news is that your symptoms can be treated, and you will feel better. Your condition does not seem serious now; however, sometimes the signs of a serious problem may take more time to appear. For this reason,it is important for you to watch for any new symptoms, problems,or worsening of your condition. Over the next few days, the abdominal pain may come and go, or be continuous. Other common symptoms can include nausea and vomiting. Sometimes it can be difficult to tell if you feel nauseous, you may just feel bad and not associate that feeling with nausea. Constipation, diarrhea, and a fever may go along with the pain. The pain may continue even if treated correctly over the following days. Depending on how things go, sometimes the cause can become clear and may require further or different treatment. Additional evaluations, medications, or tests may be needed. Home care Your health care provider may prescribe medications for pain, symptoms, or an infection. Follow the health care provider's instructions for taking these medications. General care Rest until your next exam. No strenuous activities. Try to find positions that ease discomfort. A small pillow placed on the abdomen may help relieve pain. Something warm on your abdomen (such as a heating pad) may help, but be careful not to burn yourself. Diet Do not force yourself to eat, especially if having cramps, vomiting, or diarrhea. Water is important so you do not get dehydrated. Soup may also be good. Sports drinks may also help, especially if they are not too acidic. Make sure you don't drink sugary drinks as this can make things worse. Take liquids in small amounts. Do not guzzle them. Caffeine sometimes makes the pain and cramping worse. Avoid dairy products if you have vomiting or diarrhea. Don't eat large amounts at a time. Wait a few minutes between bites. Eat a diet low in fiber (called a low-residue diet). Foods allowed include refined breads, white rice, fruit and vegetable juices without pulp, tender meats. These foods will pass more easily through the intestine. Avoid whole-grain foods, whole fruits and vegetables, meats, seeds and nuts, fried or fatty foods, dairy, alcohol and spicy foods until your symptoms go away. Follow-up care Follow up with your health care provider as instructed, or if your pain does not begin to improve in the next 24 hours. When to seek medical care Seek prompt medical care if any of the following occur: Pain gets worse or moves to the right lower abdomen New or worsening vomiting or diarrhea Swelling of the abdomen Unable to pass stool for more than three days Fever of 100.4F (38C) or higher, or as directed by your healthcare provider. Blood in vomit or bowel movements (dark red or black color) Jaundice (yellow color of eyes and skin) Weakness, dizziness Chest, arm, back, neck or jaw pain Unexpected vaginal bleeding or missed period Call 911 Call emergency services if any of the following occur: Trouble breathing Confusion Fainting or loss of consciousness Rapid heart rate Seizure Gastritis Versus Ulcer (No Antibiotic Tx) The symptoms of gastritis and peptic ulcer are very similar. Both can cause a dull ache or burning pain in the upper abdomen. Other symptoms include nausea, vomiting, loss of appetite, and belching or bloating. Blood in the vomit or stools (red or black) is a sign of bleeding in the stomach. This requires immediate medical attention. A Peptic Ulcer is an open sore in the lining of the stomach or duodenum (upper intestine). The most common cause of peptic ulcer disease is a bacterial infection (H pylori) in the stomach. Another common cause is taking anti-inflammatory medications (such as ibuprofen, prednisone, and aspirin). Gastritis is an irritation of the stomach lining. It can be acute (recent) or chronic (lasting a long time). Gastritis can be caused by overuse of alcohol or anti-inflammatory medications (such as aspirin, ibuprofen, prednisone). H pyloriinfection can also cause chronic gastritis. Tests for H pyloriare used to screen for bacterial infection. If no infection is found, ulcer and gastritis can be treated by stopping the cause, such as anti-inflammatory medications, alcohol, caffeine, and tobacco, and treating with antacids plus an acid ty medication. If H pylori infection is found, antibiotics will be prescribed along with an acid ty. Persons 55 years and older may undergo other tests before treatment is started. Two common tests are used to evaluate your symptoms. An upper GI series is an x-ray taken after you drink a chalky liquid called barium. This coats the stomach and allows an ulcer to show up on the x-ray. Another test is called endoscopy during which a long thin tube called an endoscope is passed down your throat to the stomach. A camera at the end of the scope allows the doctor to view inside the stomach to check the cause of your symptoms. Home Care: Take the prescribed acid ty medication for the full course of treatment even if you begin to feel better sooner. This medication can take up to several days to fully control your symptoms. If you cant afford the prescribed medication, you can try [id number] acid blockers, such as Pepcid AC, Tagamet, Zantac, or Aciphex. If these do not relieve your symptoms, a stronger acid-ty can be tried, such as Prilosec OTC. If you have been prescribed an antibiotic to treat H pyloriinfection, finish the full course of medication. Do so even if you begin to feel better sooner. If you stop the medication too soon, the infection can return and be harder to treat. You can use antacids, such as Tums, Rolaids, Mylanta, or Maalox, for pain. This will be useful the first few days after starting acid blockers when the blockers havent started working yet. Follow the directions on the label. Liquid antacids may work better than tablets. Note that antacids can interfere with absorption of certain medications. Specifically, do not take Tagamet (cimetidine), Zantac (ranitidine), or Carafate (sucralfate) within 1 hour of taking an antacid. Talk with your pharmacist if you have any questions. Although foods do not cause an ulcer, symptoms can be worsened by certain foods. Limit or avoid fatty, fried, and spicy foods, as well as coffee, chocolate, mint, and foods with high acid content such as tomatoes and citrus fruit and juices (orange, grapefruit, lemon). Avoid alcohol, caffeine, and tobacco, which can delay healing. Avoid aspirin and anti-inflammatory medications such as ibuprofen (Advil, Motrin) and naproxen (Naprosyn, Aleve). Acetaminophen (Tylenol) is safe to use. Do not take more than the amount listed on the label. Follow Up with your doctor or as advised. Further testing may be needed. If you do not begin to improve over the next 4 days, contact your doctor. If you had tests, youll be notified of any new findings that affect your care. Get Prompt Medical Attention if any of the following occur: Stomach pain gets worse or moves to the lower right abdomen (appendix area) Chest pain appears or gets worse, or spreads to the back, neck, shoulder, or arm Frequent vomiting (cant keep down liquids) Blood in the stool or vomit (red or black in color) Feeling weak or dizzy, fainting, or trouble breathing Fever of 100.4F (38C) or higher, or as directed by your healthcare provider Ondansetron Oral disintegrating tablet What is this medicine? ONDANSETRON (on YEYO se dino) is used to treat nausea and vomiting caused by chemotherapy. It is also used to prevent or treat nausea and vomiting after surgery. How should I use this medicine? These tablets are made to dissolve in the mouth. Do not try to push the tablet through the foil backing. With dry hands, peel away the foil backing and gently remove the tablet. Place the tablet in the mouth and allow it to dissolve, then swallow. While you may take these tablets with water, it is not necessary to do so. Talk to your pot puller regarding the use of this medicine in children. Special care may be needed. What side effects may I notice from receiving this medicine? Side effects that you should report to your doctor or health career placement specialist as soon as possible: allergic reactions like skin rash, itching or hives, swelling of the face, lips, or tongue breathing problems dizziness fast or irregular heartbeat feeling faint or lightheaded, falls fever and chills swelling of the hands and feet tightness in the chest Side effects that usually do not require medical attention (report to your doctor or health career placement specialist if they continue or are bothersome): constipation or diarrhea headache What may interact with this medicine? Do not take this medicine with any of the following medications: -apomorphine -cisapride -dofetilide -dronedarone -pimozide -thioridazine -ziprasidone This medicine may also interact with the following medications: -carbamazepine -phenytoin -rifampicin -tramadol -other medicines that prolong the QT interval (cause an abnormal heart rhythm) What if I miss a dose? If you miss a dose, take it as soon as you can. If it is almost time for your next dose, take only that dose. Do not take double or extra doses. Where should I keep my medicine? Keep out of the reach of children. Store between 2 and 30 degrees C (36 and 86 degrees F). Throw away any unused medicine after the expiration date. What should I tell my health care provider before I take this medicine? They need to know if you have any of these conditions: heart disease history of irregular heartbeat liver disease low levels of magnesium or potassium in the blood an unusual or allergic reaction to ondansetron, granisetron, other medicines, foods, dyes, or preservatives or trying to get breast-feeding What should I watch for while using this medicine? Check with your doctor or health career placement specialist as soon as you can if you have any sign of an allergic reaction. Sucralfate Oral tablet What is this medicine? SUCRALFATE (TAMRA katherine fate) helps to treat ulcers of the intestine. How should I use this medicine? Take this medicine by mouth with a glass of water. Follow the directions on the prescription label. This medicine works best if you take it on an empty stomach, 1 hour before meals. Take your doses at regular intervals. Do not take your medicine more often than directed. Do not stop taking except on your doctor's advice. Talk to your pot puller regarding the use of this medicine in children. Special care may be needed. What side effects may I notice from receiving this medicine? Side effects that you should report to your doctor or health career placement specialist as soon as possible: allergic reactions like skin rash, itching or hives, swelling of the face, lips, or tongue difficulty breathing Side effects that usually do not require medical attention (report to your doctor or health career placement specialist if they continue or are bothersome): back pain constipation drowsy, dizzy dry mouth headache stomach upset, gas trouble sleeping What may interact with this medicine? antacid cimetidine digoxin ketoconazole phenytoin quinidine ranitidine some antibiotics like ciprofloxacin, norfloxacin, and ofloxacin theophylline thyroid hormones warfarin What if I miss a dose? If you miss a dose, take it as soon as you can. If it is almost time for your next dose, take only that dose. Do not take double or extra doses. Where should I keep my medicine? Keep out of the reach of children. Store at room temperature between 15 and 30 degrees C (59 and 86 degrees F). Keep container tightly closed. Throw away any unused medicine after the expiration date. What should I tell my health care provider before I take this medicine? They need to know if you have any of these conditions: kidney disease an unusual or allergic reaction to sucralfate, other medicines, foods, dyes, or preservatives or trying to get breast-feeding What should I watch for while using this medicine? Visit your doctor or health career placement specialist for regular check ups. Let your doctor know if your symptoms do not improve or if you feel worse. Antacids should not be taken within one half hour before or after this medicine. You have been given the following additional information: Abdominal Pain, Unknown Cause, (Female) Gastritis Vs. Ulcer Ondansetron Oral disintegrating tablet Sucralfate Oral tablet (Electronically signed by Terry Davies Dr. 07/22/2016 12:57)
== END 2016-07-18 20:55 | disposition home or self-care (01) ==
LOC: ED SRH 17:09
DX: K29.00 Acute gastritis without bleeding (principal); R10.13 Epigastric pain; R11.0 Nausea; Z88.5 Allergy status to narcotic agent; Z88.0 Allergy status to penicillin
CPT/HCPCS: 90004; 90100; 90197; 92235; 94060; 95059